=== PATIENT | male | born 1970 | race Caucasian/White ===

== ENCOUNTER 2017-11-12 18:01 | Emergency (ER) | payer OTHER ==
[~2017-11-12] VITALS: Ht 180.3 cm; Wt 115.7 kg
--- NOTE | 2017-11-12 18:54 | Diagnostic Imaging Report ---
PROCEDURE: Frontal and lateral views of the chest. COMPARISON: None. INDICATIONS: WEAKNESS FINDINGS: Lines/tubes: None. Lungs: The lungs are well inflated and clear. There is no evidence of pneumonia or pulmonary edema. Pleura: There is no pleural effusion or pneumothorax. Heart and mediastinum: The heart and the mediastinum are normal. Bones: No acute bony abnormality. IMPRESSION: No acute cardiopulmonary disease. Dictated by: Kiko Jensen M.D. on 11/12/2017 at 18:54 Electronically approved by: Kiko Jensen M.D. on 11/12/2017 at 18:54
[2017-11-12 18:55] LABS: BASOPHILS % 0.3 % (0.0-1.0); EOSINOPHILS % 0.6 % (0.0-6.0); HEMATOCRIT 43.6 % (38.2-49.6); HEMOGLOBIN 14.7 g/dL (14.0-18.0); LYMPHOCYTES # (AUTO) 1.5 (1.0-3.2); LYMPHOCYTES % 22.4 % (18.0-39.1); MEAN CORPUSCULAR HEMOGLOBIN 29.4 pg (28-32); MEAN CORPUSCULAR HGB CONC 33.7 g/dL (31-35); MEAN CORPUSCULAR VOLUME 87.2 fL (81-99); MONOCYTES # (AUTO) 0.5 (0.2-0.8); MONOCYTES % 7.4 % (4.4-11.3); NEUTROPHILS # (AUTO) 4.6 (2.1-6.9); PLATELET COUNT 249 x10e3/uL (140-360); RED CELL DISTRIBUTION WIDTH 12.1 % (11.7-14.4)
[2017-11-12 18:57] LABS: CLARITY,URINE CLEAR (CLEAR); COLOR,URINE YELLOW (YELLOW)
[2017-11-12 18:58] LABS: LEUKOCYTE ESTERASE ,URINE NEGATIVE (NEGATIVE); NITRITE,URINE NEGATIVE (NEGATIVE); PROTEIN,URINE DIPSTICK NEGATIVE (NEGATIVE)
[2017-11-12 18:59] LABS: AMPHETAMINES SCREEN,URINE NEGATIVE (NEGATIVE); BENZODIAZEPINES SCREEN,URINE NEGATIVE (NEGATIVE); BILIRUBIN,URINE NEGATIVE (NEGATIVE); KETONES,URINE NEGATIVE (NEGATIVE); PHENCYCLIDINE SCREEN,URINE NEGATIVE (NEGATIVE); URINE UROBILINOGEN 0.2 mg/dL (0.2 - 1)
[2017-11-12 19:03] LABS: INR 1.03; PARTIAL THROMBOPLASTIN TIME 28.1 seconds (23.8-35.5); PROTHROMBIN TIME 12.7 seconds (11.9-14.5)
[2017-11-12 19:13] LABS: ALANINE AMINOTRANSFERASE 18 IU/L (0-55); ALBUMIN 4.3 g/dL (3.5-5.0); ALBUMIN/GLOBULIN RATIO 1.4 (0.8-2.0); ALKALINE PHOSPHATASE 60 IU/L (40-150); ANION GAP 14.4 mmol/L (8-16); BLOOD UREA NITROGEN 17 mg/dL (7-26); BUN/CREATININE RATIO 18 (6-25); CALCIUM 9.5 mg/dL (8.4-10.2); CARBON DIOXIDE 27 mmol/L (22-29); CHLORIDE 102 mmol/L (98-107); CREATINE KINASE 81 IU/L (30-200); CREATININE, SERUM 0.95 mg/dL (0.72-1.25); EST GLOMERULAR FILTRATION RATE > 60 ML/MIN (60-); GLUCOSE 100 mg/dL (74-118); MAGNESIUM 2.2 MG/DL (1.3-2.1); POTASSIUM 4.4 mmol/L (3.5-5.1); SODIUM 139 mmol/L (136-145)
--- NOTE | 2017-11-12 19:32 | Diagnostic Imaging Report ---
EXAMINATION: Head CT without contrast. HISTORY:Weakness and fatigue. COMPARISON:None. TECHNIQUE: Multidetector axial images were obtained from the foramen magnum to the vertex without contrast. The images were reconstructed using brain and bone algorithms. Thin section brain images were reformatted into coronal and sagittal planes. Intravenous contrast: None IMAGE QUALITY: Acceptable. FINDINGS: Skull/scalp: No lytic or blastic. lesions. No surgical changes. Parenchyma: No abnormal density. No acute hemorrhage, mass or acute major vascular territorial infarct. Arteries: No density suggestive of thrombosis. Dural sinuses: No abnormal density suggestive of thrombosis. Ventricles: No hydrocephalus or displacement. Extra-axial spaces: No abnormal density. Brain volume: Normal for age. Craniocervical junction: No mass, Chiari malformation, or basilar invagination. Sella: No mass. Paranasal/mastoid sinuses: Complete opacification of visualized portion of right maxillary sinus. IMPRESSION: No intracranial abnormality. Signed by: Dr. Korin Amaro M.D. on 11/12/2017 7:29 PM
[2017-11-12 19:33] LABS: THYROID STIMULATING HORMONE 0.821 uIU/mL (0.350-4.940)
[2017-11-12 20:03] LABS: FREE THYROXINE INDEX 2.1415 (1.4-3.8)
[2017-11-12 20:45] VITALS: BP 132/84
== END 2017-11-12 20:50 | disposition home or self-care (01) ==
LOC: ER 18:01
DX: R53.83 Other fatigue (principal); I10 Essential (primary) hypertension
CPT/HCPCS: 36415; 70450; 71046; 80053; 80307; 80320; 81001; 82550; 82553; 83735; 84436; 84443; 84479; 84484; 85025; 85610; 85730; 93005; 99284

== ENCOUNTER 2019-05-23 10:35 | Emergency (ER) | payer OTHER ==
[~2019-05-23] VITALS: Ht 180.3 cm; Wt 115.7 kg
--- OUTSIDE RECORDS SUMMARY | 2019-05-23 10:38 | XMS REPORT ---
Author Author [facility] Address Unknown Phone Unavailable Care Team Providers Care Repertoire Manager Name Role Phone TRENT SANTANA Unavailable Unavailable Problems This patient has no known problems. Allergies, Adverse Reactions, Alerts This patient has no known allergies or adverse reactions. Medications This patient has no known medications. Results Test Description Test Time Test Comments Text Results Atomic Results Result Comments CHEST 2 VIEWS [place] [address] Patient Name: JOYCE CESPEDES MR #: [id number] : 1970 Age/Sex: 47/M Req #: [id number] Adm Physician: Ordered by: TRENT SANTANA MD Report #: [id number] Location: ER Room/Bed: Procedure: [id number] DX/CHEST 2 VIEWS Exam Date: 11/12/17 Exam Time: 1840 REPORT STATUS: Signed PROCEDURE: Frontal and lateral views of the chest. COMPARISON: None. INDICATIONS: WEAKNESS FINDINGS: Lines/tubes: None. Lungs: The lungs are well inflated and clear. There is no evidence of pneumonia or pulmonary edema. Pleura: There is no pleural effusion or pneumothorax. Heart and mediastinum: The heart and the mediastinum are normal. Bones: No acute bony abnormality. IMPRESSION: No acute cardiopulmonary disease. Dictated by: Kiko Lees M.D. on 11/12/2017 at 18:54 Electronically approved by: Kiko Lees M.D. on 11/12/2017 at 18:54 Dictated By: KIKO LEES MD 53 Transcribed By: GENNARO on 11/12/171853 COPY TO: TRENT SANTANA MD CT BRAIN WO [place] [address] Patient Name: JOYCE CESPEDES MR #: [id number] : 1970 Age/Sex: 47/M Req #: [id number] Adm Physician: Ordered by: TRENT SANTANA MD Report #: [id number] Location: ER Room/Bed: Procedure: [id number] CT/CT BRAIN WO Exam Date: 11/12/17 Exam Time: 1838 REPORT STATUS: Signed EXAMINATION: Head CT without contrast. HISTORY:Weakness and fatigue. COMPARISON:None. TECHNIQUE: Multidetector axial images were obtained from the foramen magnum to the vertex without contrast. The images were reconstructed using brain and bone algorithms. Thin section brain images were reformatted into coronal and sagittal planes. Intravenous contrast: None IMAGE QUALITY: Acceptable. FINDINGS: Skull/scalp: No lytic or blastic. lesions. No surgical changes. Parenchyma: No abnormal density. No acute hemorrhage, mass or acute major vascular territorial infarct. Arteries: No density suggestive of thrombosis. Dural sinuses: No abnormal density suggestive of thrombosis. Ventricles: No hydrocephalus or displacement. Extra-axial spaces: No abnormal density. Brain volume: Normal for age. Craniocervical junction: No mass, Chiari malformation, or basilar invagination. Sella: No mass. Paranasal/mastoid sinuses: Complete opacification of visualized portion of right maxillary sinus. IMPRESSION: No intracranial abnormality. Signed by: Dr. Korin Fuchs M.D. on 11/12/2017 7:29 PM Dictated By: KORIN FUCHS MD 28 Transcribed By: ERNESTO on 11/12/171928 COPY TO: TRENT SANTANA MD
--- OUTSIDE RECORDS SUMMARY | 2019-05-23 10:39 | XMS REPORT ---
Author Organization Unknown Address [address] [place] [address] Phone [phone] Care Team Providers Care Testing Shaking Shipping Name Role Phone [facility] 247 [phone] Allergies Code Code System Name Reaction Severity Status Onset NKDA Notes: PT DOES NOT TAKE HYDROCODONE Medications Name Status Start Date Stop Date acetaminophen 300 mg-codeine 30 mg tablet Completed 11/16/2017 acyclovir 800 mg tablet Take 1 tablet 5 times a day by oral route as directed for 7 days. Active Not available amoxicillin 875 mg-potassium clavulanate 125 mg tablet Completed 11/16/2017 azelastine 137 mcg (0.1 %) nasal spray aerosol Completed 11/16/2017 gpxgjcafqswfqiv-mjcsstfqpklyrbp-NW 2 mg-30 mg-10 mg/5 mL syrup Completed 11/16/2017 cephalexin 500 mg capsule Completed 11/19/2016 clonidine HCl 0.1 mg tablet Completed 11/16/2017 doxycycline hyclate 100 mg capsule Completed 11/16/2017 fluticasone 50 mcg/actuation nasal spray,suspension [employer] 1 spray twice a day by intranasal route as directed for 10 days. Completed 11/16/2017 meloxicam 15 mg tablet Completed 10/01/2016 methylprednisolone 4 mg tablets in a dose pack Completed 11/16/2017 oseltamivir 75 mg capsule Completed 11/16/2017 prednisone 50 mg tablet Take 1 tablet every day by oral route as directed for 5 days. Active Not available Virtussin AC 10 mg-100 mg/5 mL oral liquid Completed 11/16/2017 Notes: OTC vitamins Some medications listed in Document: #[id number] could not be added to this patient's chart. Please review this document and add these medications to the patient's chart manually as needed. Problems Name Status Onset Date Source Hypercholesterolemia Active 07/30/2016 Body Mass Index 30+ - Obesity Active 07/30/2016 Pain in Elbow Active 07/30/2016 Family History of Prostate Cancer Active 07/30/2016 Hyperkalemia Active 08/07/2016 High Hemoglobin a1C Level Active 08/07/2016 Notes: Some problems listed in Document: #[id number] could not be added to this patient's chart. Please review this document and add these problems to the patient's chart manually as needed. Procedures Date Name Performed by Hernia Repair Notes: Left Inguinal Information not available 07/30/2016 Electrocardiogram [facility] [address] [place] [address] (Work Place) Notes: Excision of Cyst from Right Neck Gland Lab Results Date Name Specimen Result Interpretation Description Value Range Status Address 11/12/2016 Lipid Panel, Serum Hdl 41 mg/dL 40-60 mg/dL Final [facility]: [address] [place] [address] Triglyceride 109 mg/dL 0-149 mg/dL Final [facility]: [address] [place] [address] VLDL Calc. 22 mg/dL Final [facility]: [address] [place] [address] cholesterol/HDL Ratio 5 mg/dL Final [facility]: [address] [place] [address] non-HDL Cholesterol Calc. 153 mg/dL 0-160 mg/dL Final [facility]: [address] [place] [address] Cholesterol 194 mg/dL 0-199 mg/dL Final [facility]: [address] [place] [address] High LDL Calc. 131 mg/dL 0-130 mg/dL Final [facility]: [address] [place] [address] 11/12/2016 HbA1C (Hemoglobin a1C), Blood A1C W/eag 5.7 % 1.0-5.7 % Final [facility]: [address] [place] [address] Average Blood Glucose 117 mg/dL Final [facility]: [address] [place] [address] 08/07/2016 Potassium, Serum Potassium, Serum 4.8 mmol/L 3.5-5.2 mmol/L Final [facility]: [address] 07/30/2016 CBC W/ Auto Diff Wbc 5.05 x10*3/L 2.90-10.50 x10*3/L Final [facility]: [address] [place] [address] Rbc 4.88 10*12/L 3.61-5.21 10*12/L Final [facility]: [address] [place] Hemoglobin 14.5 g/dL 12.3-17.5 g/dL Final [facility] [address] [facility] Hematocrit 44.3 % 37.1-51.3 % Final [facility]: [address] [facility] Mcv 90.8 fL 79.4-101.6 fL Final [facility]: [address] [facility] Mch 29.7 pg 26.2-34.8 pg Final [facility]: [address] [facility] Mchc 32.7 g/dL 30.2-35.6 g/dL Final [facility]: [address] [facility] RDW-SD 41.9 fL 35.8-49.8 fL Final [facility]: [address] [place] [address] Platelet Count 265.0 k/uL 118.8-347.0 k/uL Final [facility]: [address] [facility] Mpv 10.1 fL 8.4-13.4 fL Final [facility]: [address] [place] Neut% 58.2 % 39.1-76.5 % Final [facility]: [address] [facility] Lymph% 29.9 % 13.8-46.8 % Final [facility]: [address] [facility] Mon% 10.3 % 4.6-14.4 % Final [facility]: [address] [facility] Eos% 1.400 % 0.001-7.300 % Final [facility]: [address] [facility] Baso% 0.2 % 0.0-1.5 % Final [facility]: [address] [facility] Neut# 2.9 x10*3/L 0.8-7.0 x10*3/L Final [facility]: [address] Lymph# 1.5 x10*3/L 0.6-3.2 x10*3/L Final [facility]: [address] [facility] [place] Mon# 0.5 x10*3/L 0.2-1.0 x10*3/L Final [facility]: [address] [place] Eos# 0.07 x10*3/L 0.00-0.51 x10*3/L Final [facility]: [address] [place] [address] [place] Baso# 0.010 x10*3/L 0.001-0.090 x10*3/L Final [facility]: [address] [facility] 07/30/2016 CMP, Serum or Plasma Alt 18.0 U/L 0.0-55.0 U/L Final [facility]: [address] Ast 18.0 U/L 5.0-34.0 U/L Final [facility]: [address] Bun 18.0 mg/dL 8.0-26.0 mg/dL Final [facility]: [address] Alk Phos 62.0 unit/L 40.0-150.0 unit/L Final [facility]: [address] Glucose 96.0 mg/dL 70.0-99.0 mg/dL Final [facility]: [address] Albumin 4.1 g/dL 3.5-5.0 g/dL Final [facility]: [address] Creatinine 0.9 mg/dL 0.7-1.3 mg/dL Final [facility]: [address] eGFR Non- >60 mL/min/1.73m2 >60.0 mL/min/1.73m2 Final [facility]: [address] Total Bilirubin 0.5 mg/dL 0.2-1.2 mg/dL Final [facility]: [address] eGFR - >60 mL/min/1.73m2 >60.0 mL/min/1.73m2 Final [facility]: [address] Sodium 141.0 mEq/L 137.0-144.0 mEq/L Final [facility]: [address] [place] [address], [place] High Potassium 5.3 mEq/L 3.5-5.0 mEq/L Final [facility]: [address] Chloride 105.0 mmol/L 101.0-110.0 mmol/L Final [facility]: [address] Total Protein 6.8 g/dL 6.4-8.3 g/dL Final [facility]: [address] Calcium 9.5 mg/dL 8.4-10.2 mg/dL Final [facility]: [address] High Co2 30 mmol/L 21-29 mmol/L Final [facility]: [address] Anion Gap 6.0 calc Final [facility]: [address] 07/30/2016 Lipid Panel, Serum Hdl 46.0 mg/dL 40.0-60.0 mg/dL Final [facility]: [address] Triglyceride 60.0 mg/dL 0.0-149.0 mg/dL Final [facility]: [address] VLDL Calc. 12.0 mg/dL Final [facility]: [address] cholesterol/HDL Ratio 4.6 mg/dL Final [facility]: [address] High non-HDL Cholesterol Calc. 165.0 mg/dL 0.0-160.0 mg/dL Final [facility]: [address] High Cholesterol 211.0 mg/dL 0.0-199.0 mg/dL Final [facility]: [address] High LDL Calc. 153.0 mg/dL 0.0-130.0 mg/dL Final [facility]: [address] 07/30/2016 PSA, Serum or Plasma PSA, Total 1.80 NG/mL <4.00 NG/mL Final [facility]: [address] 07/30/2016 Testosterone, Total, Serum Testosterone, Total 426.9 NG/dL 240.2-870.7 NG/dL Final [facility]: [address] 07/30/2016 HbA1C (Hemoglobin a1C), Blood High A1C W/eag 5.9 % 1.0-5.7 % Final [facility]: [address] [place] [address], [place] Average Blood Glucose 122.6 mg/dL Final [facility]: [address] [place] [address], [place] 07/24/2014 Hepatitis (A+B+C) Panel, Serum No observation recorded. [facility] [address] , [place] Electrocardiogram Rate & Rhythm 67 [facility]: [address] [facility] [place] Interval 190 [facility]: [address] [facility] [place] QRS Duration 106 [facility]: [address] [facility] [place] QT Interval 384 [facility]: [address] [facility] [place] Past Encounters 11/16/2017 Fatigue; Eruption Dada Almeida MD: [address] [place] [address], Ph. 03/02/2017 Upper Respiratory Infection Dada Almeida MD: [address] [place] [address], Ph. 11/19/2016 Hypercholesterolemia; Body Mass Index 30+ - Obesity Nicky Montes De Oca MD: [address] [place] [phone], Ph. 11/12/2016 Hypercholesterolemia; High Hemoglobin a1C Level Nicky Montes De Oca MD: [address] [place] [phone], Ph. 10/01/2016 Upper Respiratory Infection; Body Mass Index 30+ - Obesity Dada Almeida MD: [address] [place] [phone], Ph. 08/07/2016 Hypercholesterolemia; Hyperkalemia; High Hemoglobin a1C Level; Screening for Malignant Neoplasm of Colon; Snoring; Body Mass Index 30+ - Obesity; Influenza Vaccination Nicky Montes De Oca MD: [address] [place] [address], Ph. 07/30/2016 Adult Health Examination; Screening for Malignant Neoplasm of Prostate; Family History of Prostate Cancer; Hypercholesterolemia; Body Mass Index 30+ - Obesity; Pain in Elbow Nicky Montes De Oca MD: [address] [place] [address], Ph. Social History Smoking Status Never Smoker Vaccine List Vaccine Type influenza, seasonal, injectable 08/07/20160.5 mL Tdap 08/14/2011 Plan of Care Reminders Provider Appointments None recorded. Lab None recorded. Referral None recorded. Procedures None recorded. Surgeries None recorded. Imaging None recorded. Vitals 11/16/2017 01:45PM Est Patient Height Weight BMI Blood Pressure 6 ft 255 lbs 34.6 kg/m2 124/80 mm[Hg] 03/02/2017 02:45PM Est Patient Height Weight BMI Blood Pressure 6 ft 260 lbs 35.3 kg/m2 124/76 mm[Hg] 11/19/2016 09:15AM Est Patient Height Weight BMI Blood Pressure 6 ft 251 lbs 34 kg/m2 124/77 mm[Hg] 10/01/2016 11:00AM Est Patient Height Weight BMI Blood Pressure 6 ft 254 lbs 34.4 kg/m2 122/81 mm[Hg] 08/07/2016 02:00PM Est Patient Height Weight BMI Blood Pressure 6 ft 262 lbs 35.5 kg/m2 136/80 mm[Hg] 07/30/2016 07:30AM HRBP/EST CPX Height Weight BMI Blood Pressure 6 ft 258 lbs 35 kg/m2 115/79 mm[Hg]
[2019-05-23] MEDS ORDERED: ASPIRIN 81 MG CHEW TAB PO ONE (11:00)
[2019-05-23 11:33] LABS: BASOPHILS % 0.3 % (0.0-1.0); EOSINOPHILS # (AUTO) 0.1 (0.0-0.4); HEMATOCRIT 41.8 % (38.2-49.6); HEMOGLOBIN 14.2 g/dL (14.0-18.0); LYMPHOCYTES # (AUTO) 1.4 (1.0-3.2); LYMPHOCYTES % 23.4 % (18.0-39.1); MEAN CORPUSCULAR HEMOGLOBIN 29.8 pg (28-32); MEAN CORPUSCULAR VOLUME 87.6 fL (81-99); MONOCYTES # (AUTO) 0.5 (0.2-0.8); MONOCYTES % 7.5 % (4.4-11.3); NEUTROPHILS % 67.6 % (38.7-80.0); PLATELET COUNT 226 x10e3/uL (140-360); RED BLOOD COUNT 4.77 x10e6/uL (4.3-5.7); RED CELL DISTRIBUTION WIDTH 11.9 % (11.7-14.4)
[2019-05-23 11:34] LABS: INR 0.9; PROTHROMBIN TIME 12.6 seconds (11.9-14.5)
[2019-05-23 11:35] LABS: PARTIAL THROMBOPLASTIN TIME 28.5 seconds (23.8-35.5)
[2019-05-23 11:40] LABS: ALANINE AMINOTRANSFERASE 19 IU/L (0-55); ALBUMIN 4.2 g/dL (3.5-5.0); ALBUMIN/GLOBULIN RATIO 1.4 (0.8-2.0); ALKALINE PHOSPHATASE 55 IU/L (40-150); ANION GAP 12.4 mmol/L (8-16); BLOOD UREA NITROGEN 23 mg/dL (7-26); BUN/CREATININE RATIO 23 (6-25); CALCIUM 9.8 mg/dL (8.4-10.2); CARBON DIOXIDE 28 mmol/L (22-29); CHLORIDE 102 mmol/L (98-107); CREATINE KINASE 97 IU/L (30-200); CREATININE, SERUM 0.98 mg/dL (0.72-1.25); EST GLOMERULAR FILTRATION RATE > 60 ML/MIN (60-); GLUCOSE 100 mg/dL (74-118); POTASSIUM 4.4 mmol/L (3.5-5.1); SODIUM 138 mmol/L (136-145)
[2019-05-23 11:53] LABS: BILIRUBIN,URINE NEGATIVE (NEGATIVE); CLARITY,URINE CLEAR (CLEAR); COLOR,URINE YELLOW (YELLOW); KETONES,URINE NEGATIVE (NEGATIVE); LEUKOCYTE ESTERASE ,URINE NEGATIVE (NEGATIVE); NITRITE,URINE NEGATIVE (NEGATIVE); PROTEIN,URINE DIPSTICK NEGATIVE (NEGATIVE); URINE UROBILINOGEN 0.2 mg/dL (0.2 - 1)
[2019-05-23 12:05] LABS: BACTERIA,URINE FEW /HPF; EPITHELIAL CELLS,URINE RARE /LPF; WBC,URINE (MAN) 0-5 /HPF (0-5)
--- NOTE | 2019-05-23 12:42 | Diagnostic Imaging Report ---
Exam: Chest radiograph Clinical History: Chest pain Findings: The cardiomediastinal silhouette and lungs are normal. The regional skeleton and soft tissue are unremarkable. There is no evidence of pleural effusion or pneumothorax. Impression: No radiographic evidence of acute cardiopulmonary disease. Signed by: Dr. Flash Givens MD on 05/23/2019 12:39 PM
[2019-05-23 13:16] VITALS: BP 124/80
== END 2019-05-23 13:17 | disposition home or self-care (01) ==
LOC: ER 10:35
DX: R07.89 Other chest pain (principal)
CPT/HCPCS: 36415; 71045; 80053; 81001; 82550; 82553; 83880; 84484; 85025; 85610; 85730; 93005; 99284

== ENCOUNTER → 2021-06-04 | Day surgery (SDC) | payer BC ==
[~2021-06-04] MED LIST: ACETAMINOPHEN/CODEINE 300MG - 30MG TAB ONE; BUPIVACAINE HCL 0.5% INJ 30 ML VIAL INJ ONE; CIALIS2.5 MG PO; FENTANYL CITRATE/PF 100MCG/2 ML INJ ONE; FLOMAX0.4 MG PO; MIDAZOLAM HCL 2 MG/2 ML VIAL ONE; OMEPRAZOLE40 MG PO; SODIUM CHLORIDE 0.9% 50ML 100 ML ONE; TESTOSTERO100 MG/1 M INJ
[2021-06-04 09:35] VITALS: BP 124/84
== END | disposition home or self-care (01) ==
LOC: OR 07:19
PROVIDERS: ATTEND Specialist
DX: S83.221A Peripheral tear of medial meniscus, current injury, right knee, initial encounter (principal); M22.41 Chondromalacia patellae, right knee; M17.11 Unilateral primary osteoarthritis, right knee; M23.41 Loose body in knee, right knee; G47.33 Obstructive sleep apnea (adult) (pediatric); K21.9 Gastro-esophageal reflux disease without esophagitis; X58.XXXA Exposure to other specified factors, initial encounter; Z88.6 Allergy status to analgesic agent; Z88.1 Allergy status to other antibiotic agents; Z01.810 Encounter for preprocedural cardiovascular examination; Z01.812 Encounter for preprocedural laboratory examination; Z20.822 Contact with and (suspected) exposure to COVID-19
CPT/HCPCS: 29881; 93005; J0690; J2250; J3010; U0002

== ENCOUNTER 2022-09-18 11:48 | Observation (INO) | payer BC ==
[~2022-09-18] VITALS: Ht 180.3 cm; Wt 108.9 kg
[~2022-09-18 11:48] MED LIST changes: -ACETAMINOPHEN/CODEINE 300MG - 30MG TAB ONE; -BUPIVACAINE HCL 0.5% INJ 30 ML VIAL INJ ONE; -FENTANYL CITRATE/PF 100MCG/2 ML INJ ONE; -MIDAZOLAM HCL 2 MG/2 ML VIAL ONE; -SODIUM CHLORIDE 0.9% 50ML 100 ML ONE
[2022-09-18] MEDS ORDERED: ASPIRIN 81 MG CHEW TAB PO ONE ×2 (12:15→13:30)
[2022-09-18 12:26] LABS: BASOPHILS % 0.2 % (0.0-1.0); EOSINOPHILS % 0.8 % (0.0-6.0); HEMATOCRIT 46.1 % (38.2-49.6); HEMOGLOBIN 14.4 g/dL (14.0-18.0); LYMPHOCYTES # (AUTO) 1.4 (1.0-3.2); LYMPHOCYTES % 28.7 % (18.0-39.1); MEAN CORPUSCULAR HEMOGLOBIN 30.1 pg (28-32); MEAN CORPUSCULAR HGB CONC 31.2 g/dL (31-35); MEAN CORPUSCULAR VOLUME 96.4 fL (81-99); MONOCYTES # (AUTO) 0.4 (0.2-0.8); MONOCYTES % 7.4 % (4.4-11.3); NEUTROPHILS # (AUTO) 3.1 (2.1-6.9); NEUTROPHILS % 62.7 % (38.7-80.0); PLATELET COUNT 218 x10e3/uL (140-360); RED BLOOD COUNT 4.78 x10e6/uL (4.3-5.7); RED CELL DISTRIBUTION WIDTH 12.2 % (11.7-14.4)
[2022-09-18 12:45] LABS: ALANINE AMINOTRANSFERASE 16 IU/L (0-55); ALBUMIN 4.1 g/dL (3.5-5.0); ALBUMIN/GLOBULIN RATIO 1.4 (0.8-2.0); ALKALINE PHOSPHATASE 47 IU/L (40-150); ANION GAP 12.1 mmol/L (8-16); BLOOD UREA NITROGEN 16 mg/dL (7-26); BUN/CREATININE RATIO 16 (6-25); CALCIUM 9.1 mg/dL (8.4-10.2); CARBON DIOXIDE 25 mmol/L (22-29); CHLORIDE 104 mmol/L (98-107); CREATINE KINASE 154 IU/L (30-200); CREATININE, SERUM 1.01 mg/dL (0.72-1.25); GLUCOSE 116 mg/dL (74-118); POTASSIUM 4.1 mmol/L (3.5-5.1); SODIUM 137 mmol/L (136-145)
[2022-09-18] MEDS ORDERED: ONDANSETRON HCL INJ 2MG/ML 2ML 2 MG/ML VIAL IV PRN (13:30)
[2022-09-18] MEDS ORDERED: SODIUM CHLORIDE FLUSH 10 ML SYR INJ PRN (13:30)
[2022-09-18 14:21] VITALS: BP 135/85
[2022-09-18 14:43] VITALS: BP 135/85
[2022-09-18] MEDS ORDERED: CIALIS20 MG PO (15:55)
[2022-09-18 15:56] VITALS: BP 143/97
[2022-09-18] MEDS ORDERED: FLOMAX0.4 MG PO ×2 (15:56→15:59)
[2022-09-18] MEDS: OLMESARTAN 20 MG TAB PO SCH (17:01)
[2022-09-18] MEDS: SODIUM CHLORIDE 0.9% 1000ML 1,000 ML IV SCH (17:01)
[2022-09-18 20:00] VITALS: BP 122/70
[2022-09-18 20:40] LABS: CREATINE KINASE 367 IU/L (30-200)
[2022-09-19 00:40] VITALS: BP 115/74
[2022-09-19 04:00] VITALS: BP 131/80
[2022-09-19] MEDS: SODIUM CHLORIDE 0.9% 1000ML 1,000 ML IV SCH (06:39)
[2022-09-19 07:19] LABS: CREATINE KINASE MB 1.5 ng/mL (0-5.0)
[2022-09-19 07:56] VITALS: BP 120/68
[2022-09-19 08:00] VITALS: BP 120/68
[2022-09-19] MEDS: OLMESARTAN 20 MG TAB PO SCH (08:27)
[2022-09-19] MEDS ORDERED: ASPIRIN 81 MG ENTERIC COATED PO SCH (09:00)
[2022-09-19 11:40] VITALS: BP 109/75
== END 2022-09-19 13:51 | disposition home or self-care (01) ==
LOC: ER 11:53 → ERHOLD 13:26 → MED/SURG2 14:08
PROVIDERS: ADMIT Internal Medicine; ATTEND Internal Medicine
DX: R07.89 Other chest pain (principal); I10 Essential (primary) hypertension; N40.0 Benign prostatic hyperplasia without lower urinary tract symptoms; R11.0 Nausea; R00.2 Palpitations; E86.0 Dehydration; I16.0 Hypertensive urgency; Z20.822 Contact with and (suspected) exposure to COVID-19
CPT/HCPCS: 0223U; 36415 ×2; 71045; 80053; 82550 ×2; 82553 ×2; 84484 ×2; 85025; 85379; 93005; 93306; 94760; 99284; G0378 ×2; J7030 ×2